=== PATIENT | male | born 1930 | race Caucasian/White ===

== ENCOUNTER → 2018-05-08 | Outpatient (CLI) | payer OTHER ==
[~2018-05-08] MED LIST: IOPAMIDOL (ISOVUE 370) 100 ML BTL IV ONE
== END ==
LOC: FIMAGING 05-07 14:41
PROVIDERS: ATTEND Nurse Practitioner Adult Health
DX: R91.8 Other nonspecific abnormal finding of lung field (principal); R42 Dizziness and giddiness; R06.02 Shortness of breath; R53.83 Other fatigue; I77.1 Stricture of artery
CPT/HCPCS: 71046; 71275; Q9967; 82565-PO